=== PATIENT | female | born 1950 | race Caucasian/White ===

== ENCOUNTER → 2016-11-01 | Outpatient (CLI) | payer BC ==
[~2016-11-01] MED LIST: COZAAR DPS50 MG PO; MILK OF MAGNESI10 ML PO; MIRALAX PACKET17 GM PO; NORCO 5-325 TA1 EACH PO; THERA1 EACH PO; TYLENOL DPS325 MG PO; ZANTAC DPS150 MG PO
== END | disposition home or self-care (01) ==
LOC: RAD.S 10-31 10:23
DX: M79.89 Other specified soft tissue disorders (principal); M79.605 Pain in left leg; R22.1 Localized swelling, mass and lump, neck; E04.1 Nontoxic single thyroid nodule